=== PATIENT | female | born 1980 | race Caucasian/White ===

== ENCOUNTER → 2017-02-03 | Outpatient (CLI) | payer OTHER ==
[~2017-02-03] MED LIST: [UNRECOGNIZED DRUG - OTHER]; birth control
--- NOTE | 2017-02-03 16:36 | RAD ---
Chest, 2 views, 02/03/2017: History: Productive cough, sore throat The heart size and pulmonary vascularity are normal. No pulmonary infiltrates are seen. There is no evidence of pleural fluid. IMPRESSION: No acute cardiopulmonary abnormality is detected.
== END | disposition home or self-care (01) ==
LOC: DXRADRC 12:00
PROVIDERS: ATTEND Physician Assistant Medical
DX: R05 Cough (principal)
CPT/HCPCS: 71020

== ENCOUNTER → 2017-06-27 | Outpatient (CLI) | payer OTHER ==
--- NOTE | 2017-06-27 14:12 | RAD ---
Pelvic ultrasound to include transabdominal and transvaginal imaging 06/27/2017 Clinical history: Pelvic pain and dysuria. Technique: Using the distended urinary bladder as a sonographic window, a real-time ultrasound examination of the pelvis was performed. Additionally in an attempt to better evaluate the uterus and adnexa, a transvaginal ultrasound study was performed. Multiple images were obtained. Findings: The the uterus is within normal limits in size and echogenicity. It measures 8.0 x 4.8 x 3.7 cm in longitudinal, transverse, and AP dimensions. The endometrial echo complex measures 7 mm in thickness which is within normal limits. No focal abnormality of the uterus is seen. Small nabothian cysts are seen within the cervix. These measure 3 mm to 8 mm in size. Both ovaries are within normal limits in size and echogenicity. The right ovary measures 3.3 x 2.3 x 1.5 cm in size. The left ovary measures 3.2 x 2.6 x 1.8 cm in size. No adnexal mass is seen. No free fluid is noted. Impression: Negative study.
== END | disposition home or self-care (01) ==
LOC: US 08:30
PROVIDERS: ATTEND Physician Assistant Medical
DX: N88.8 Other specified noninflammatory disorders of cervix uteri (principal); R30.0 Dysuria; R10.2 Pelvic and perineal pain
CPT/HCPCS: 76830; 76856

== ENCOUNTER 2021-07-26 05:29 | Emergency (ER) | payer OTHER ==
[~2021-07-26] VITALS: Ht 157.5 cm; Wt 54.5 kg
[2021-07-26 05:35] VITALS: BP 130/77
--- NOTE | 2021-07-26 05:51 | PHYS DOC ---
Past History Past Medical History: No Pertinent History Past Surgical History: Other Smoking: Non-smoker Alcohol Use: None Drug Use: None General Adult EDM: Chief Complaint: INSECT BITE HPI: HPI: Patient is a [age] year old [sex] who presents with [] Review of Systems: Review of Systems: Constitutional: Denies fever or chills Eyes: Denies redness or eye pain HENT: Denies nasal congestion or sore throat Respiratory: Denies cough or shortness of breath Cardiovascular: Denies chest pain or palpitations GI: Denies abdominal pain, nausea, or vomiting : Denies dysuria or hematuria Musculoskeletal: Denies back pain or joint pain Integument: Denies rash or skin lesions Neurologic: Denies headache, focal weakness or sensory changes Complete systems were reviewed and found to be within normal limits, except as documented in this note. Allergies: Allergies: Allergies Coded Allergies Type Severity Reaction Last Updated Verified No Known Drug Allergies 10/16/13 No Physical Exam: PE: Constitutional: Well developed, well nourished, no acute distress, non-toxic robyn earance HENT: Normocephalic, atraumatic Eyes: PERRL, EOMI, conjunctiva normal, no discharge Neck: Normal range of motion, no tenderness, supple Lungs & Thorax: No respiratory distress, equal chest rise and fall Abdomen: Soft, no tenderness Skin: Warm, dry, no erythema, no rash Back: No tenderness, no CVA tenderness Extremities: No tenderness, ROM intact, no edema Neurologic: Alert and oriented X 3, normal motor function, normal sensory function, no focal deficits noted Psychologic: Affect normal, judgment normal EKG: EKG: [] Radiology/Procedures: Radiology/Procedures: [] Heart Score: C/O Chest Pain: N/A Course & Med Decision Making: Course & Med Decision Making Patient stable for discharge with outpatient follow-up with PCP. Discussed findings and plan with patient, who acknowledges understanding and agreement. Oanh Disclaimer: Oanh Disclaimer: This electronic medical record was generated, in whole or in part, using a voice recognition dictation system. Departure Departure: Impression: Primary Impression: Swollen lip Disposition: HOME / SELF CARE / HOMELESS Condition: STABLE Referrals: ASHISH HANSEN (PCP) Patient Instructions: Facial Infection Additional Instructions: There is concern that your lip swelling is secondary to an infectious etiology. Please take antibiotic as prescribed. You may also ICE area 20 min on then leave off next 20 mins. Repeat several times daily as need for swelling. You have already been given a 1 time dose of a long acting steroid to help with the inflammation. Scripts Clindamycin Hcl (CLINDAMYCIN HCL) 300 Mg Capsule 1 CAP PO TID for infection for 7 Days, #21 CAP Prov: DOROTHEA ROA DO 07/26/21 DOROTHEA ROA DO Jul 26, 2021 05:51
[2021-07-26] MEDS ORDERED: CLIN300C9 PO (05:52)
[2021-07-26] MEDS ORDERED: CLINDAMYCIN HCL 150 MG CAPSULE PO ONE (06:00)
[2021-07-26] MEDS ORDERED: DEXAMETHASONE 4 MG TABLET PO ONE (06:00)
== END 2021-07-26 06:08 | disposition home or self-care (01) ==
LOC: ER 05:29
DX: R22.0 Localized swelling, mass and lump, head (principal)
CPT/HCPCS: 99283; J8540

== ENCOUNTER 2021-11-12 19:29 | Emergency (ER) | payer OTHER ==
[~2021-11-12] VITALS: Ht 157.5 cm; Wt 52.2 kg
[~2021-11-12 19:29] MED LIST changes: +CLIN-95 PO
[2021-11-12 19:40] VITALS: BP 112/88
[2021-11-12] MEDS ORDERED: ONDANSETRON ODT 4 MG TAB.RAPDIS PO ONE (20:00)
[2021-11-12] MEDS ORDERED: ONDA4TAB12 PO (20:03)
--- NOTE | 2021-11-12 20:03 | PHYS DOC ---
Past History Past Medical History: No Pertinent History Past Surgical History: No Surgical History Smoking: Non-smoker Alcohol Use: None Drug Use: None General Adult HPI: HPI: Patient is a 41-year-old female who presents to the emergency department with nausea, vomiting, fever, chills, headache, nasal congestion and a nonproductive cough started a couple of days ago. Patient denies any sick exposures, diarrhea, shortness of breath, loss of taste or smell. Patient is not vaccinated for COVID-19. Her vital signs are stable and she is in no acute distress. Review of Systems: Review of Systems: Constitutional: Denies fever or chills Eyes: Denies change in visual acuity HENT: Denies nasal congestion or sore throat Respiratory: Denies cough or shortness of breath Cardiovascular: Denies chest pain or edema GI: Denies abdominal pain, nausea, vomiting, bloody stools or diarrhea : Denies dysuria Musculoskeletal: Denies back pain or joint pain Integument: Denies rash Neurologic: Denies headache, focal weakness or sensory changes Endocrine: Denies polyuria or polydipsia Lymphatic: Denies swollen glands Psychiatric: Denies depression or anxiety Allergies: Allergies: Allergies Coded Allergies Type Severity Reaction Last Updated Verified No Known Drug Allergies 10/16/13 No Physical Exam: PE: Constitutional: Well developed, well nourished, no acute distress, non-toxic appearance. [] HENT: Normocephalic, atraumatic, bilateral external ears normal, oropharynx moist, no oral exudates, nose normal. [] Eyes: PERRLA, EOMI, conjunctiva normal, no discharge. [] Neck: Normal range of motion, no tenderness, supple, no stridor. [] Cardiovascular:Heart rate regular rhythm, no murmur [] Lungs & Thorax: Bilateral breath sounds clear to auscultation [] Abdomen: Bowel sounds normal, soft, no tenderness, no masses, no pulsatile masses. [] Skin: Warm, dry, no erythema, no rash. [] Back: No tenderness, no CVA tenderness. [] Extremities: No tenderness, no cyanosis, no clubbing, ROM intact, no edema. [] Neurologic: Alert and oriented X 3, normal motor function, normal sensory function, no focal deficits noted. [] Psychologic: Affect normal, judgement normal, mood normal. [] EKG: EKG: [] Radiology/Procedures: Radiology/Procedures: [] Heart Score: C/O Chest Pain: N/A Risk Factors: Risk Factors: DM, Current or recent (<one month) smoker, HTN, HLP, family history of CAD, obesity. Risk Scores: Score 0 - 3: 2.5% MACE over next 6 weeks - Discharge Home Score 4 - 6: 20.3% MACE over next 6 weeks - Admit for Clinical Observation Score 7 - 10: 72.7% MACE over next 6 weeks - Early Invasive Strategies Course & Med Decision Making: Course & Med Decision Making Pertinent Labs and Imaging studies reviewed. (See chart for details) []presents to the emergency department with nausea, vomiting, fever, chills, headache, nasal congestion and a nonproductive cough started a couple of days ago. Patient was treated with Zofran in the emergency department. She was tested for COVID-19 and this test is pending and she will be notified of those results when they become available. Patient's vital signs are stable and she is in no acute distress. She was educated on symptomatic treatment. I discussed with patient all findings and diagnostic testing as well as the need to follow- up with PCP for further evaluation and treatment or return to the ER if any new or worsening symptoms. Strict return precautions were also discussed at length. Patient voiced understanding and agreement with the plan. Patient is hemodynamically stable at the time of disposition. Dragon Disclaimer: Dragon Disclaimer: This electronic medical record was generated, in whole or in part, using a voice recognition dictation system. Departure Departure: Impression: Primary Impression: Person under investigation for COVID-19 Disposition: HOME / SELF CARE / HOMELESS Condition: GOOD Referrals: ASHISH HANSEN (PCP) Patient Instructions: Nausea and Vomiting Additional Instructions: You were seen in the emergency department today for nausea, vomiting, chills, headache, cough. You were tested for COVID-19 and you will be notified of those results when they become available in approximately 1 to 2 days. Please self isolate until you receive these results. Increase your fluids and rest. Take Tylenol and ibuprofen for any pain or fevers. You are being discharged home with nausea medication you can take as needed. Follow-up with your primary care provider tomorrow regarding your ER visit. Return to the emergency department if you develop high fevers refractory to treatment, intractable nausea or vomiting, shortness of breath, chest pain, weakness. Scripts Ondansetron (ONDANSETRON ODT) 4 Mg Tab.rapdis 1 TAB PO PRN Q6-8HRS for nausea for 7 Days, #28 TAB 0 Refills Prov: JAMES GARCIA APRN 11/12/21 JAMES GARCIA APRN Nov 12, 2021 20:03
[2021-11-12] MEDS ORDERED: ONDANSETRON ODT 4 MG TAB.RAPDIS ONE (20:08)
[2021-11-12] MEDS ORDERED: ONDANSETRON 4MG ODT 4TABLET STARTPACK. PO ONE ×2 (20:08→20:15)
--- NOTE | 2021-11-13 15:51 | NUR ---
POSITIVE COVID RESULTS GIVEN BY MARIANA.
== END 2021-11-12 20:05 | disposition home or self-care (01) ==
LOC: ER 19:29
DX: U07.1 COVID-19 (principal)
CPT/HCPCS: 99283; C9803; Q0162; U0003

== ENCOUNTER 2021-11-17 09:19 | Emergency (ER) | payer OTHER ==
[~2021-11-17] VITALS: Ht 157.5 cm; Wt 52.2 kg
[~2021-11-17 09:19] MED LIST changes: +ONDA4TAB12 PO
[2021-11-17] MEDS ORDERED: IV NORMAL SALINE 1,000ML 1,000 ML IV ONE ×2 (09:30→11:15)
[2021-11-17] MEDS ORDERED: ONDANSETRON PF 4 MG/2 ML VIAL. IVP ONE (09:45)
--- NOTE | 2021-11-17 10:00 | PHYS DOC ---
Past History Past Medical History: No Pertinent History Past Surgical History: No Surgical History Smoking: Non-smoker Alcohol Use: None Drug Use: None General Adult EDM: Chief Complaint: Vomiting, COVID-19 HPI: HPI: 41-year-old female presents with vomiting and diarrhea. Patient was diagnosed COVID-positive on Friday. Her symptoms started last , 10 days ago. She had vomiting and diarrhea initially, but it went away. She started to have vomiting and diarrhea again last night. She is unable to keep anything down so she came into the emergency room. She has tried 4 mg Zofran at home without effect. She denies significant shortness of breath or cough. No reported fever or chills. Review of Systems: Review of Systems: Constitutional: Denies fever or chills Eyes: Denies change in visual acuity HENT: Denies nasal congestion or sore throat Respiratory: Denies cough or shortness of breath Cardiovascular: Denies chest pain or edema GI: Nausea, vomiting, diarrhea : Denies dysuria Musculoskeletal: Denies back pain or joint pain Integument: Denies rash Neurologic: Denies headache, focal weakness or sensory changes Endocrine: Denies polyuria or polydipsia Lymphatic: Denies swollen glands Psychiatric: Denies depression or anxiety Current Medications: Current Meds: Current Medications Medications (Trade) Dose Ordered Sig/Siva Start Time Stop Time Status Last Admin Dose Admin Diphenhydramine HCl (Benadryl) 25 mg 1X ONCE 11/17/21 10:15 11/17/21 10:16 Ondansetron HCl (Zofran) 4 mg 1X ONCE 11/17/21 09:45 11/17/21 09:46 DC Prochlorperazine Edisylate (Compazine) 10 mg 1X ONCE 11/17/21 10:15 11/17/21 10:16 Sodium Chloride 1,000 ml @ 1,000 mls/hr 1X ONCE 11/17/21 09:30 11/17/21 10:29 Allergies: Allergies: Allergies Coded Allergies Type Severity Reaction Last Updated Verified No Known Drug Allergies 10/16/13 No Physical Exam: PE: Constitutional: Well developed, well nourished, no acute distress, non-toxic appearance. [] HENT: Normocephalic, atraumatic, bilateral external ears normal, oropharynx dry, no oral exudates, nose normal. [] Eyes: PERRLA, EOMI, conjunctiva normal, no discharge. [] Neck: Normal range of motion, no tenderness, supple, no stridor. [] Cardiovascular: Heart rate regular rhythm, no murmur [] Lungs & Thorax: Bilateral breath sounds clear to auscultation [] Abdomen: Bowel sounds normal, soft, no tenderness, no masses, no pulsatile masses. [] Skin: Warm, dry, no erythema, no rash. [] Back: No tenderness, no CVA tenderness. [] Extremities: No tenderness, no cyanosis, no clubbing, ROM intact, no edema. [] Neurologic: Alert and oriented X 3, normal motor function, normal sensory function, no focal deficits noted. [] Psychologic: Affect normal, judgement normal, mood anxious. [] EKG: EKG: [] Radiology/Procedures: Radiology/Procedures: [] Heart Score: C/O Chest Pain: N/A Risk Factors: Risk Factors: DM, Current or recent (<one month) smoker, HTN, HLP, family history of CAD, obesity. Risk Scores: Score 0 - 3: 2.5% MACE over next 6 weeks - Discharge Home Score 4 - 6: 20.3% MACE over next 6 weeks - Admit for Clinical Observation Score 7 - 10: 72.7% MACE over next 6 weeks - Early Invasive Strategies Course & Med Decision Making: Course & Med Decision Making Pertinent Labs and Imaging studies reviewed. (See chart for details) The patient's labs are unremarkable. For her nausea and vomiting I have given her 4 mg of Zofran, 10 mg of Compazine, 25 mg of Benadryl. She appears clinically dry so we have given her 2 L of normal saline. She was unable to give us urine after the first liter. The patient is feeling much better at this time. I will discharge her with an additional prescription for Compazine. She is stable for discharge at this time. [] Dragon Disclaimer: Oanh Disclaimer: This electronic medical record was generated, in whole or in part, using a voice recognition dictation system. Departure Departure: Impression: Primary Impression: COVID-19 Additional Impression: Vomiting Disposition: HOME / SELF CARE / HOMELESS Condition: IMPROVED Referrals: ASHISH HANSEN (PCP) Patient Instructions: Nausea and Vomiting, Megp-ic-Taej Scripts Prochlorperazine Maleate (Compazine) 10 Mg Tablet 1 TAB PO Q6HRS PRN for VOMITING for 7 Days, #28 TAB 0 Refills Prov: RAHUL GOLDMAN DO 11/17/21 RAHUL GOLDMAN DO Nov 17, 2021 10:00
[2021-11-17] MEDS ORDERED: diphenhydrAMINE 50 MG/ML VIAL IVP ONE (10:15)
[2021-11-17] MEDS ORDERED: PROCHLORPERAZINE 10 MG/2 ML VIAL. IV ONE (10:15)
[2021-11-17 10:30] LABS: CALCIUM 8.9 mg/dL (8.5-10.1); CREATININE 0.7 mg/dL (0.6-1.0); GFR 92.2; POTASSIUM 3.8 mmol/L (3.5-5.1)
[2021-11-17 10:31] LABS: BASO % 0 % (0-3); EOS % 0 % (0-3); HEMATOCRIT 42.3 % (36.0-47.0); LYMPH # 0.8 x10^3/uL (1.0-4.8); LYMPH % 22 % (24-48); MEAN CORPUSCULAR HEMOGLOBIN 31 pg (25-35); MEAN CORPUSCULAR HGB CONC 33 g/dL (31-37); MEAN CORPUSCULAR VOLUME 93 fL (79-100); MONO # 0.5 x10^3/uL (0.0-1.1); MONO % 14 % (0-9); NEUT # 2.4 x10^3uL (1.8-7.7); NEUT % 64 % (31-73); PLATELET COUNT 176 x10^3/uL (140-400); RED BLOOD COUNT 4.56 x10^6/uL (3.50-5.40); RED CELL DISTRIBUTION WIDTH 12.3 % (11.5-14.5); WHITE BLOOD COUNT 3.8 x10^3/uL (4.0-11.0)
[2021-11-17 10:36] LABS: ALBUMIN 3.7 g/dL (3.4-5.0); TOTAL BILIRUBIN 0.3 mg/dL (0.2-1.0); TOTAL PROTEIN 7.3 g/dL (6.4-8.2)
[2021-11-17 12:20] VITALS: BP 121/67
[2021-11-17] MEDS ORDERED: PROC10TA57 PO (12:36)
[2021-11-17 13:29] LABS: BILIRUBIN,URINE NEG (NEG); CLARITY,URINE CLEAR; COLOR,URINE YELLOW; GLUCOSE,URINE NEG (NEG)
[2021-11-17 13:30] LABS: BACTERIA,URINE MOD /HPF (0-FEW); NITRITE,URINE NEG (NEG); SQUAMOUS EPITHELIAL CELL,UR MOD /LPF; UROBILINOGEN,URINE 0.2 mg/dL (0.2 mg/dL)
[2021-11-17 13:43] LABS: AMPHETAMINE/METHAMPHETAMINE NEG (NEG); BARBITURATES NEG (NEG); BENZODIAZEPINES NEG (NEG); CANNABINOIDS NEG (NEG); COCAINE NEG (NEG); METHADONE NEG (NEG); OPIATES NEG (NEG); PHENCYCLIDINE NEG (NEG)
== END 2021-11-17 12:45 | disposition home or self-care (01) ==
LOC: ER 09:19
DX: U07.1 COVID-19 (principal); R11.2 Nausea with vomiting, unspecified; R19.7 Diarrhea, unspecified
CPT/HCPCS: 36415; 80053; 80307; 81001; 85025; 87086; 96361; 96374; 96375; 99284; J0780; J1200; J2405; J7030